=== PATIENT | male | born 1960 | race Caucasian/White ===

== ENCOUNTER 2017-10-08 18:50 | Emergency (ER) | payer BC ==
[2017-10-08] MEDS ORDERED: MVI, Adult with Vitamin K 10 ML, Thiamine 100 MG, Folic Acid 1 MG, Magnesium Sulfate 3 ... IV SCH ×5 (19:15)
--- NOTE | 2017-10-08 19:21 | EDM.PDOC ---
ED HPI GENERAL MEDICAL PROBLEM - General Chief Complaint: General Stated Complaint: WEAKNESS Time Seen by Provider: 10/08/17 19:17 Source of Information: Reports: Patient, Family History Limitations: Reports: No Limitations - History of Present Illness INITIAL COMMENTS - FREE TEXT/NARRATIVE: Patient complains of generalized weakness x 2 days. Has been sleeping most of the day. Patient endorses increased psychosocial stress lately due to issues at work. Also complains of polyuria and polydipsia. Denies pain, fevers, chills, cough or N/V/D. Denies suicidal ideation. Onset Date: 10/06/17 Duration: Day(s): (2) Improves with: Reports: None Worsens with: Reports: None - Related Data Allergies Allergy/AdvReac Type Severity Reaction Status Date / Time No Known Allergies Allergy Verified 10/08/17 21:04 Past Medical History Cardiovascular History: Reports: High Cholesterol, Hypertension. Denies: CAD Neurological History: Denies: CVA, TIA Psychiatric History: Reports: Depression Social & Family History - Tobacco Use Smoking Status *Q: Never Smoker - Alcohol Use Alcohol Use Frequency: Daily (2 vodka drinks per day, none since last night) ED ROS GENERAL - Review of Systems Review Of Systems: See Below Constitutional: Reports: Weakness HEENT: Reports: No Symptoms Respiratory: Reports: No Symptoms Cardiovascular: Reports: No Symptoms Endocrine: Reports: Polydypsia, Polyuria GI/Abdominal: Reports: No Symptoms : Reports: Frequency. Denies: Dysuria Musculoskeletal: Reports: No Symptoms Skin: Reports: No Symptoms Neurological: Reports: No Symptoms Psychiatric: Reports: No Symptoms Hematologic/Lymphatic: Reports: No Symptoms Immunologic: Reports: No Symptoms ED EXAM, GENERAL - Physical Exam Exam: See Below Exam Limited By: No Limitations General Appearance: Alert, WD/WN, No Apparent Distress Eye Exam: Bilateral Eye: PERRL Ears: Normal External Exam Nose: Normal Inspection Throat/Mouth: Normal Inspection, Normal Lips, Normal Teeth, Normal Gums, Normal Oropharynx, Normal Voice, No Airway Compromise Head: Atraumatic, Normocephalic Neck: Normal Inspection, Supple, Full Range of Motion Respiratory/Chest: No Respiratory Distress, Lungs Clear, Normal Breath Sounds, No Accessory Muscle Use Cardiovascular: Regular Rate, Rhythm, No Edema, No Gallop, No JVD, No Murmur, No Rub GI/Abdominal: Normal Bowel Sounds, Soft, Non-Tender, No Organomegaly, No Distention, No Abnormal Bruit, No Mass (Male) Exam: Deferred Rectal (Males) Exam: Deferred Back Exam: Full Range of Motion Extremities: Normal Inspection, Normal Range of Motion Neurological: Alert, Oriented, CN II-XII Intact, Normal Cognition, No Motor/ Sensory Deficits Psychiatric: Normal Affect, Normal Mood Skin Exam: Warm, Dry, Intact, Normal Color, No Rash EKG INTERPRETATION EKG Date: 10/08/17 Rhythm: NSR Rate (Beats/Min): 88 Hanahan: LAD-Left Hanahan Deviation (borderline) P-Wave: Present QRS: Normal ST-T: Normal VA/PQ Interval: 203 EKG Interpretation Comments: No acute ischemia Course - Vital Signs Text/Narrative:: Symptoms unchanged, vital signs stable. Last Recorded V/S: Last Vital Signs Temp 36.9 C 10/08/17 19:05 Pulse 87 10/08/17 19:05 Resp 17 10/08/17 19:05 BP 114/76 10/08/17 19:05 Pulse Ox 100 10/08/17 19:05 - Orders/Labs/Meds Orders: Active Orders 24 hr Category Date Time Status EKG Documentation Completion [RC] ASDIRECTED Care 10/08/17 19:14 Active UA W/MICROSCOPIC [URIN] Stat Lab 10/08/17 21:35 Ordered MVI, Adult with Vitamin K [Infuvite Adult] 10 ml Med 10/08/17 19:15 Active Thiamine [Vitamin B-1] 100 mg Folic Acid 1 mg Magnesium Sulfate [Magnesium Sulfate 50%] 3 gm Sodium Chloride 0.9% [Normal Saline] 1,000 ml IV ASDIRECTED EKG 12 Lead [EK] Stat Ther 10/08/17 19:14 Ordered Medication Orders Multivitamins/Minerals 10 ml/Thiamine HCl 100 mg/ Folic Acid 1 mg/ Magnesium Sulfate 3 gm/ Sodium Chloride 1,017.2 mls @ 500 mls/hr IV ASDIRECTED FRANCOIS Last Infusion: 10/08/17 21:03 Dose: 500 mls/hr Admin: 10/08/17 20:45 Dose: 250 mls/hr Labs: Laboratory Tests 10/08/17 10/08/17 10/08/17 Range/Units 19:30 19:30 19:30 WBC 6.3 (4.5-12.0) X10-3/uL RBC 4.17 L (4.30-5.75) x10(6)uL Hgb 14.8 (11.5-15.5) g/dL Hct 42.3 (30.0-51.3) % MCV 101.2 H (80-96) fL MCH 35.4 H (27.7-33.6) pg MCHC 35.0 (32.2-35.4) g/dL RDW 12.8 (11.5-15.5) % Plt Count 202 (125-369) X10(3)uL MPV 7.7 (7.4-10.4) fL Neut % (Auto) 61.0 (46-82) % Lymph % (Auto) 30.4 (13-37) % [place] % (Auto) 6.8 (4-12) % Eos % (Auto) 1 (1.0-5.0) % Baso % (Auto) 1 (0-2) % Neut # (Auto) 3.9 (1.6-8.3) # Lymph # (Auto) 1.9 (0.6-5.0) # [place] # (Auto) 0.4 (0.0-1.3) # Eos # (Auto) 0.1 (0.0-0.8) # Baso # (Auto) 0.0 (0.0-0.2) # Sodium 141 (135-145) mmol/L Potassium 3.4 L (3.5-5.3) mmol/L Chloride 104 (100-110) mmol/L Carbon Dioxide 25 (21-32) mmol/L BUN 19 H (7-18) mg/dL Creatinine 1.2 (0.70-1.30) mg/dL Est Cr Clr Drug Dosing TNP Estimated GFR (MDRD) > 60 (>60) BUN/Creatinine Ratio 15.8 (9-20) Glucose 145 H (80-116) mg/dL Calcium 8.2 L (8.6-10.2) mg/dL Magnesium (1.8-2.5) mg/dL Total Bilirubin 0.6 (0.1-1.3) mg/dL AST 130 H (5-25) IU/L ALT 87 H (12-36) U/L Alkaline Phosphatase 98 (56-112) IU/L Creatine Kinase (60-160) IU/L Troponin I < 0.017 L (<0.017-0.056) ng/mL Total Protein 6.7 (6.0-8.0) g/dL Albumin 3.1 L (3.5-5.2) g/dL Globulin 3.6 g/dL Albumin/Globulin Ratio 0.9 TSH, Ultra Sensitive 1.66 (0.36-3.74) IU/mL Urine Color (YELLOW) Urine Appearance (CLEAR) Urine pH (5.0-6.5) Ur Specific [place] (1.010-1.025) Urine Protein (NEGATIVE) mg/dL Urine Glucose (UA) (NEGATIVE) mg/dL Urine Ketones (NEGATIVE) mg/dL Urine Occult Blood (NEGATIVE) Urine Nitrite (NEGATIVE) Urine Bilirubin (NEGATIVE) Urine Urobilinogen (NEGATIVE) mg/dL Ur Leukocyte Esterase (NEGATIVE) Urine RBC (0) Urine WBC (0) Ur Squamous Epith Cells (NS,R,O) Urine Bacteria (NS) 10/08/17 10/08/17 10/08/17 Range/Units 19:30 19:30 21:35 WBC (4.5-12.0) X10-3/uL RBC (4.30-5.75) x10(6)uL Hgb (11.5-15.5) g/dL Hct (30.0-51.3) % MCV (80-96) fL MCH (27.7-33.6) pg MCHC (32.2-35.4) g/dL RDW (11.5-15.5) % Plt Count (125-369) X10(3)uL MPV (7.4-10.4) fL Neut % (Auto) (46-82) % Lymph % (Auto) (13-37) % [place] % (Auto) (4-12) % Eos % (Auto) (1.0-5.0) % Baso % (Auto) (0-2) % Neut # (Auto) (1.6-8.3) # Lymph # (Auto) (0.6-5.0) # [place] # (Auto) (0.0-1.3) # Eos # (Auto) (0.0-0.8) # Baso # (Auto) (0.0-0.2) # Sodium (135-145) mmol/L Potassium (3.5-5.3) mmol/L Chloride (100-110) mmol/L Carbon Dioxide (21-32) mmol/L BUN (7-18) mg/dL Creatinine (0.70-1.30) mg/dL Est Cr Clr Drug Dosing Estimated GFR (MDRD) (>60) BUN/Creatinine Ratio (9-20) Glucose (80-116) mg/dL Calcium (8.6-10.2) mg/dL Magnesium 1.9 (1.8-2.5) mg/dL Total Bilirubin (0.1-1.3) mg/dL AST (5-25) IU/L ALT (12-36) U/L Alkaline Phosphatase (56-112) IU/L Creatine Kinase 94 (60-160) IU/L Troponin I (<0.017-0.056) ng/mL Total Protein (6.0-8.0) g/dL Albumin (3.5-5.2) g/dL Globulin g/dL Albumin/Globulin Ratio TSH, Ultra Sensitive (0.36-3.74) IU/mL Urine Color Yellow (YELLOW) Urine Appearance Clear (CLEAR) Urine pH 6.0 (5.0-6.5) Ur Specific [place] 1.015 (1.010-1.025) Urine Protein Negative (NEGATIVE) mg/dL Urine Glucose (UA) Normal (NEGATIVE) mg/dL Urine Ketones Negative (NEGATIVE) mg/dL Urine Occult Blood Negative (NEGATIVE) Urine Nitrite Negative (NEGATIVE) Urine Bilirubin Negative (NEGATIVE) Urine Urobilinogen Normal (NEGATIVE) mg/dL Ur Leukocyte Esterase Negative (NEGATIVE) Urine RBC 0-5 (0) Urine WBC 0-5 (0) Ur Squamous Epith Cells Occasional (NS,R,O) Urine Bacteria Rare H (NS) Meds: Medications Generic Name Dose Route Start Last Admin Trade Name Freq PRN Reason Stop Dose Admin Multivitamins/Minerals 10 ml/ 1,017.2 mls @ 500 mls/hr 10/08/17 19:15 21:03 Thiamine HCl 100 mg/ Folic IV 500 mls/hr Acid 1 mg/ Magnesium Sulfate 3 ASDIRECTED FRANCOIS Infusion gm/ Sodium Chloride Discontinued Medications Generic Name Dose Route Start Last Admin Trade Name Freq PRN Reason Stop Dose Admin Lorazepam 0.5 mg 10/08/17 20:20 10/08/17 20:41 Ativan IVPUSH 10/08/17 20:21 0.5 mg ONETIME ONE Administration Departure - Departure Time of Disposition: 22:48 Disposition: Home, Self-Care 01 Condition: Good Clinical Impression: Generalized weakness, Alcohol abuse - Discharge Information Instructions: Alcohol Abuse and Nutrition, Weakness, [id number] Referrals: Aureliano Arellano PA [Primary Care Provider] - Forms: ED Department Discharge Additional Instructions: Taper Alcohol use. Take a Multivitamin daily. Follow up with your doctor in 1-2 days. - My Orders Last 24 Hours: My Active Orders 10/08/17 19:14 EKG Documentation Completion [RC] ASDIRECTED EKG 12 Lead [EK] Stat 10/08/17 19:15 MVI, Adult with Vitamin K [Infuvite Adult] 10 ml Thiamine [Vitamin B-1] 100 mg Folic Acid 1 mg Magnesium Sulfate [Magnesium Sulfate 50%] 3 gm Sodium Chloride 0.9% [Normal Saline] 1,000 ml IV ASDIRECTED 10/08/17 21:35 UA W/MICROSCOPIC [URIN] Stat - Assessment/Plan Last 24 Hours: My Active Orders 10/08/17 19:14 EKG Documentation Completion [RC] ASDIRECTED EKG 12 Lead [EK] Stat 10/08/17 19:15 MVI, Adult with Vitamin K [Infuvite Adult] 10 ml Thiamine [Vitamin B-1] 100 mg Folic Acid 1 mg Magnesium Sulfate [Magnesium Sulfate 50%] 3 gm Sodium Chloride 0.9% [Normal Saline] 1,000 ml IV ASDIRECTED 10/08/17 21:35 UA W/MICROSCOPIC [URIN] Stat
[2017-10-08] MEDS ORDERED: LORazepam 2 MG/ML SDV IVPUSH ONE (20:20)
== END 2017-10-08 22:56 | disposition home or self-care (01) ==
LOC: FB.ED 18:50
DX: R53.1 Weakness (principal); F10.10 Alcohol abuse, uncomplicated; I10 Essential (primary) hypertension; E78.00 Pure hypercholesterolemia, unspecified; F32.9 Major depressive disorder, single episode, unspecified
CPT/HCPCS: 36415; 80053; 81001; 82550; 83735; 84443; 84484; 85025; 93005; 96365; 96366; 96375; 99283; J2060; J3411; J3475; J3490; J7040

== ENCOUNTER 2024-11-12 14:14 | Emergency (ER) | payer BC ==
[2024-11-12] MEDS: Ketorolac 30 MG/ML SDV IVPUSH ONE (14:57)
[2024-11-12 15:08] LABS: BASOPHILS PERCENT AUTO 0.3 % (0.3-3.8); EOSINOPHILS PERCENT AUTO 0.1 % (0.1-6.8); HEMATOCRIT 42.2 % (38.3-50.1); HEMOGLOBIN 14.4 g/dL (12.9-17.7); LYMPHOCYTES ABSOLUTE AUTO 1.2 x10-3/uL (0.5-4.5); LYMPHOCYTES PERCENT AUTO 10.7 % (15.8-45.3); MEAN CORPUSCULAR HEMOGLOBIN 33.3 pg (27.0-33.3); MEAN CORPUSCULAR HGB CONC 34.1 g/dL (28.7-35.3); MEAN CORPUSCULAR VOLUME 97.7 fL (80.8-98.7); MEAN PLATELET VOLUME 7.3 fL (6.7-11.0); MONOCYTES ABSOLUTE AUTO 0.6 x10-3/uL (0.0-1.2); MONOCYTES PERCENT AUTO 5.5 % (5.5-15.2); NEUTROPHILS ABSOLUTE AUTO 9.3 x10-3/uL (1.7-6.9); NEUTROPHILS PERCENT AUTO 83.4 % (40.3-71.8); PLATELET COUNT,PLT 202 x10(3)uL (117-477); RED BLOOD CELL COUNT 4.32 x10(6)uL (3.90-5.90); WHITE BLOOD CELL COUNT,WBC 11.1 x10-3/uL (3.2-10.1)
[2024-11-12 15:12] LABS: BLOOD UREA NITROGEN,BUN 14 mg/dL (7-18); BUN/CREATININE RATIO 10.8 (9-20); CALCIUM 8.6 mg/dL (8.6-10.2); CARBON DIOXIDE,CO2 23 mmol/L (21-32); CHLORIDE,CL 103 mmol/L (100-110); CREATININE 1.3 mg/dL (0.70-1.30); ESTIMATED GFR 62 mL/min (>60); GLUCOSE RANDOM 157 mg/dL (80-116); POTASSIUM,K 3.9 mmol/L (3.5-5.3); SODIUM,NA 140 mmol/L (135-145)
[2024-11-12 15:21] LABS: ALBUMIN 3.6 g/dL (3.2-4.6); ALKALINE PHOSPHATASE 80 IU/L (56-112); ASPARTATE AMNIOTRANSFERASE,AST 93 IU/L (5-25); BILIRUBIN TOTAL 0.6 mg/dL (0.1-1.3); PROTEIN TOTAL,TP 7.2 g/dL (6.0-8.0)
[2024-11-12 15:43] LABS: ALANINE AMINOTRANSFERASE,ALT 185 U/L (12-36)
[2024-11-12] MEDS: Iopamidol 755 Mg/ML 100 ML Bottle IV SCH (15:54)
[2024-11-12] MEDS ORDERED: HYDROmorphone 2 MG/ML SDV IVPUSH ONE (16:44)
== END 2024-11-12 17:20 | disposition home or self-care (01) ==
LOC: FB.ED 14:14
DX: S22.41XA Multiple fractures of ribs, right side, initial encounter for closed fracture (principal); N28.1 Cyst of kidney, acquired; R94.5 Abnormal results of liver function studies; F17.210 Nicotine dependence, cigarettes, uncomplicated; I10 Essential (primary) hypertension; E78.00 Pure hypercholesterolemia, unspecified; Z79.899 Other long term (current) drug therapy; W18.2XXA Fall in (into) shower or empty bathtub, initial encounter; Y93.89 Activity, other specified
CPT/HCPCS: 36415; 71260; 74177; 80053; 85025; 96374; 99284; J1885; Q9967

== ENCOUNTER 2025-04-25 06:18 | Day surgery (SDC) | payer BC ==
[~2025-04-25 06:18] MED LIST: Sodium Chloride 0.9% 10 ML Syringe FLUSH PRN
[2025-04-25] MEDS ORDERED: Ketamine 500 mg/10 ML MDV IV ONE (06:19)
[2025-04-25] MEDS ORDERED: Midazolam 1 MG/ML 2 ML SDV IV ONE (06:19)
[2025-04-25] MEDS ORDERED: Propofol 200 MG/20 ML SDV IV ONE (06:19)
[2025-04-25] MEDS: Lactated Ringers 1,000 ML IV SCH (07:06)
== END 2025-04-25 09:44 | disposition home or self-care (01) ==
LOC: FB.SDS 06:18
PROVIDERS: ATTEND Surgery
DX: Z12.11 Encounter for screening for malignant neoplasm of colon (principal); D12.5 Benign neoplasm of sigmoid colon; K57.30 Diverticulosis of large intestine without perforation or abscess without bleeding; E66.9 Obesity, unspecified; Z68.31 Body mass index [BMI] 31.0-31.9, adult; Z86.0100 Personal history of colon polyps, unspecified
CPT/HCPCS: 00811; 45385; 88305; A9270; J2003; J2250; J2704; J3490; J7120